=== PATIENT | female | born 1985 | race Caucasian/White ===

== ENCOUNTER 2016-07-08 17:19 | Emergency (ER) | payer OTHER ==
[2016-07-08] MEDS ORDERED: ALBUTEROL 3 ML DEYVIAL IH ONE (18:26)
[2016-07-08] MEDS ORDERED: NS 500 ML IV ONE (18:26)
--- NOTE | 2016-07-08 18:32 | UCPHY ---
H & P Time Seen by Provider: 07/08/16 18:09 Patient Type: New HPI/ROS: CHIEF COMPLAINT: Congestion, hoarseness HISTORY OF PRESENT ILLNESS: This is a 30-year-old female presents emergency department reporting that 1 week ago she developed cold symptoms: Nasal congestion, runny nose, sore throat, cough, fevers, aches, and sensitive skin. Patient is unclear how high her fever might have been but she describes being quite diaphoretic at night and chilled. No nausea, vomiting, chest pain, or sputum production. Her upper respiratory infection symptoms cleared several days ago, but then she developed significant sore throat, hoarse voice, cough especially at night, greenish sputum. She reports feeling under the weather with poor appetite, in significant coughing. Some chest discomfort with coughing mostly described as chest tightness. Also reports crusting an injection of the left eye. No leg pain. No leg swelling. No pleuritic chest pain. Of note, the patient is approximately 14 weeks . She states she has not had any care thus far. She denies any vaginal bleeding or crampy abdominal pain. REVIEW OF SYSTEMS: Aside from elements discussed in the HPI, a comprehensive 10-point review of systems was reviewed and is negative. PAST MEDICAL HISTORY: Patient denies. Specifically no history of asthma. SOCIAL HISTORY: Nonsmoker. VITAL SIGNS: see nurse's notes. Tachycardic. Pulse ox is 96% GENERAL: Well-developed, well-nourished, very hoarse voice, harsh cough. HEENT: Atraumatic Eyes: PERRL, EOMI, left conjunctival injection. Nose: No discharge. Mouth: Dry mucous membranes. Pharynx: Mild erythema, no exudates , no swelling, no abscess. Uvula is midline. NECK: Supple, no adenopathy, no meningismus, no tenderness. Negative Kernig's and Brudzinski's. LUNGS: coarse breath sounds bilaterally, no wheezes, rhonchi or rales. Deep breaths illicit coughing. CARDIAC: mildly tachycardic, regular rhythm, no rubs, murmurs or gallops. ABDOMEN: Soft, nontender, bowel sounds normal. Uterus palpable just above the pelvic brim. BACK: No CVA tenderness. EXTREMITIES: Normal, no edema, FROM. NEURO: Alert and oriented, grossly nonfocal. SKIN: Warm and dry, no rash. PSYCHIATRIC: Normal mentation, no agitation. Smoking Status: Never smoked Constitutional: Initial Vital Signs Temperature (C) 36.7 C 07/08/16 17:45 Heart Rate 113 H 07/08/16 17:45 Respiratory Rate 22 H 07/08/16 17:45 Blood Pressure 109/87 H 07/08/16 17:45 O2 Sat (%) 95 07/08/16 17:45 O2 Delivery Mode Room Air Allergies/Adverse Reactions: No Known Allergies Allergy (Unverified 12/22/13 19:51) Home Medications: Medication Instructions Recorded Albuterol Hfa Anes Only [Proair 2 puffs IH QID #1 mdi 07/08/16 Hfa Icu (*)] Cephalexin [Keflex (RX)] 500 mg PO TID 7 Days 07/08/16 Hydrocodone/APAP 5/325 [Wildwood 1 tab PO Q6H PRN #10 tab 07/08/16 5/325 (RX)] Medical Decision Making Procedures: Procedure: A limited transabdominal ultrasound was performed on this patient. The indication for the study was documentation of . She reports being approximately 14 weeks On the examination I found that there was an IUP. heart tones were present, rate of 120s. I did not see a significant amount of free fluid in the pelvis. Results of the exam: Positive for IUP. Images were unable to be saved to the ultrasound database secondary to machine dysfunction. The examination was performed and interpreted by myself. ED Course/Re-evaluation: IV was established in the patient received a L of normal saline. She received an albuterol nebulizer treatment. Following this she reports significant decrease in her chest congestion, and her coughing. Lungs remain clear. Heart rate was improved with this normal saline. Patient was discharged with an albuterol meter dose inhaler, hydrocodone to use as needed for coughing at night, and Keflex for bronchitis. 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 Differential Diagnosis: Differential diagnosis for the patient's cough was considered including but not limited to viral versus bacterial bronchitis, asthma, COPD, pulmonary emboli, upper respiratory infection, lower respiratory infection, and bronchospasm. - Data Points Medications Given: Discontinued Medications Albuterol (Proventil Neb) 3 ml IH EDNOW ONE Stop: 07/08/16 18:27 Last Admin: 07/08/16 18:50 Dose: 3 ml Sodium Chloride (Ns) 500 mls @ 0 mls/hr IV ONCE ONE PRN Reason: As Directed Stop: 07/08/16 18:27 Last Admin: 07/08/16 18:51 Dose: 500 mls Departure - Departure Disposition: Home, Routine, Self-Care Clinical Impression: Bronchitis, Laryngitis Condition: Good Instructions: Acute Bronchitis (ED), Laryngitis (ED) Additional Instructions: 1. Take antibiotic as directed. Keflex 500 mg by mouth 3 times a day for 7 days. 2. Okay to take hydrocodone tablets at night to help suppress her cough. They will make you sleepy and may make you constipated. 3. Use the albuterol meter dose inhaler 2-4 puffs 3 4 times a day to help control cough as well as to improve your air movement. 4. Get plenty of rest, drink plenty of fluids, use Tylenol as needed for sore throat or body aches. 5. You may use Flonase nasal spray for nasal congestion. Referrals: Willam Bryan MD [Primary Care Provider] - As per Instructions Prescriptions: Cephalexin [Keflex (RX)] 500 mg PO TID 7 Days Hydrocodone/APAP 5/325 [Wildwood 5/325 (RX)] 1 tab PO Q6H PRN #10 tab PRN Reason: cough Albuterol Hfa Anes Only [Proair Hfa Icu (*)] 2 puffs IH QID #1 mdi - PQRS PQRS Measurement: Not applicable
[2016-07-08 19:50] VITALS: BP 110/86; PULSE 95; RESP 20; TEMP 98.4; O2SAT 94
== END 2016-07-08 19:46 | disposition home or self-care (01) ==
LOC: CED 17:19
DX: J20.9 Acute bronchitis, unspecified (principal); J04.0 Acute laryngitis
CPT/HCPCS: 96360-PO; 96361-PO; G0463-PO